=== PATIENT | female | born 1990 | race Caucasian/White ===

== ENCOUNTER 2016-11-12 08:35 | Emergency (ER) | payer OTHER ==
[~2016-11-12] VITALS: Ht 175.3 cm; Wt 86.2 kg
[~2016-11-12 08:35] MED LIST: ALBU2.5V7 INH; LEVO500T20 PO; LOSA50TA3 PO; PRED20TA PO
[2016-11-12 09:03] VITALS: BP 144/102; PULSE 89; RESP 16; TEMP 98.2; O2SAT 99
--- NOTE | 2016-11-12 09:11 | NUR ---
AMBULATED TO BED 2
--- NOTE | 2016-11-12 09:30 | NUR ---
TRAE Mendoza at bedside examining patient.
--- NOTE | 2016-11-12 09:48 | NUR ---
PT PRESENTS TO ED C/O R ARM PAIN SECONDARY TO LUPUS. PT HAS NO ACUTE DISTRESS NOTED. PT REPORTS PAIN WORSENING THIS AM.
[2016-11-12] MEDS ORDERED: LORazepam 2 MG/ML VIAL (FOR ER USE) IM ONE (10:00)
[2016-11-12] MEDS ORDERED: KETOROLAC TROMETHAMINE 60 MG/2 ML VIAL IM ONE (10:00)
--- NOTE | 2016-11-12 10:05 | NUR ---
PT MEDICATED TOLERATED WELL.
[2016-11-12 10:45] VITALS: BP 145/89; PULSE 84; RESP 16; TEMP 98.2; O2SAT 99
--- NOTE | 2016-11-12 10:45 | NUR ---
Patient given written and verbal discharge instructions and verbalizes understanding. ER MD discussed with patient the results and treatment provided. Given copies of tests performed in ER. Patient in stable condition. ID arm band removed. Rx of FLEXERIL given. Patient educated on pain management and to follow up with PMD. Pain Scale 2. Opportunity for questions provided and answered.
== END 2016-11-12 10:45 | disposition home or self-care (01) ==
LOC: SED 08:35
DX: M79.1 Myalgia (principal); R10.10 Upper abdominal pain, unspecified; M32.9 Systemic lupus erythematosus, unspecified; J45.909 Unspecified asthma, uncomplicated
CPT/HCPCS: 81025; 96372; 99284; J1885; J2060

== ENCOUNTER 2018-01-01 13:25 | Emergency (ER) | payer OTHER ==
[~2018-01-01] VITALS: Ht 175.3 cm; Wt 88.0 kg
[2018-01-01 13:30] VITALS: BP_SYST 126
[2018-01-01 14:01] LABS: BASOPHILS % (AUTO) 0.5 % (0.0-2.0); EOSINOPHILS % (AUTO) 0.6 % (0.0-4.0); HEMATOCRIT 38.4 % (36-48); LYMPHOCYTES # (AUTO) 1.2 K/uL (1.0-5.5); LYMPHOCYTES % (AUTO) 20.1 % (20.5-51.5); MEAN CORPUSCULAR HEMOGLOBIN 29 pg (27-31); MEAN CORPUSCULAR HGB CONC 34 % (32-36); MEAN CORPUSCULAR VOLUME 86 fL (79.0-98.0); MONOCYTES # (AUTO) 0.3 K/uL (0.0-1.0); MONOCYTES % (AUTO) 4.6 % (1.7-9.3); NEUTROPHILS # (AUTO) 4.3 K/uL (1.8-7.7); NEUTROPHILS % (AUTO) 74.2 % (40.0-70.0); PLATELET COUNT (AUTO) 197 K/uL (130-430); RED BLOOD CELL COUNT(AUTO) 4.45 MIL/uL (4.2-6.2); RED CELL DISTRIBUTION WIDTH 12.7 % (9.0-15.0); WHITE BLOOD COUNT (AUTO) 5.8 K/uL (4.8-10.8)
[2018-01-01 14:09] LABS: ANION GAP 8 (5-15); CALCIUM 8.8 mg/dL (8.4-11.0); CHLORIDE 108 mmol/L (98-107); CREATININE 0.75 mg/dL (0.55-1.30); GLUCOSE 98 mg/dL (70-99); POTASSIUM 3.6 mmol/L (3.5-5.1); SODIUM SERUM 142 mmol/L (136-145); UREA NITROGEN, BLOOD 11 mg/dL (8-21)
[2018-01-01 14:10] LABS: GFR AFRICAN AMERICAN 120 mL/min (>90)
[2018-01-01 14:14] LABS: ALANINE AMINOTRANSFERASE 30 U/L (12-78); ALBUMIN 3.6 g/dL (3.4-4.8); ASPARTATE AMINOTRANSFERASE 19 U/L (10-37); TOTAL BILIRUBIN 0.3 mg/dL (0.0-1.0)
[2018-01-01 14:22] LABS: BARBITURATE, URINE NEGATIVE (NEG <=200); BENZODIAZEPINE, URINE NEGATIVE (NEG <=150); CANNABINOID, URINE NEGATIVE (NEG <=50); COCAINE, URINE NEGATIVE (NEG <=150); METHAMPHETAMINES SCREEN,URINE NEGATIVE (NEG <=500); OPIATE, URINE POSITIVE (NEG <=100); PHENCYCLIDINE SCREEN,URINE NEGATIVE (NEG <=25); UR TRICYCLIC ANTIDEPRESSANTS NEGATIVE (NEG <=300); URINE AMPHETAMINE NEGATIVE (NEG <=500); URINE METHADONE NEGATIVE (NEG <=200); URINE OXYCODONE SCREEN NEGATIVE (NEG <=100); URINE PROPOXYPHENE SCREEN NEGATIVE (NEG <=300)
[2018-01-01 14:23] LABS: THYROID STIMULATING HORMONE 1.31 uIu/mL (0.34-4.82)
[2018-01-01 15:30] VITALS: BP_SYST 131
== END 2018-01-01 15:30 | disposition home or self-care (01) ==
LOC: SED 13:25
DX: R00.2 Palpitations (principal); J45.909 Unspecified asthma, uncomplicated; Z88.8 Allergy status to other drugs, medicaments and biological substances
CPT/HCPCS: 36415; 71045; 80053; 80307; 81025; 84443-TC; 84484; 85025; 93005; 99285

== ENCOUNTER 2021-06-10 02:59 | Emergency (ER) | payer OTHER ==
[~2021-06-10] VITALS: Ht 175.3 cm; Wt 95.3 kg
[2021-06-10 03:05] VITALS: BP_SYST 140
[2021-06-10] MEDS ORDERED: DIPH-TET-PERTUS Vaccine 0.5 ML VIAL (ADACEL) I.M. ONE (04:15)
[2021-06-10 04:43] VITALS: BP_SYST 135
[2021-06-10] MEDS ORDERED: HYDR-3917 PO (17:24)
== END 2021-06-10 04:40 | disposition home or self-care (01) ==
LOC: SED 02:59
DX: S61.411A Laceration without foreign body of right hand, initial encounter (principal); S90.512A Abrasion, left ankle, initial encounter; J45.909 Unspecified asthma, uncomplicated; Z79.899 Other long term (current) drug therapy; V47.5XXA Car driver injured in collision with fixed or stationary object in traffic accident, initial encounter; Y93.89 Activity, other specified; Y92.89 Other specified places as the place of occurrence of the external cause; Y99.8 Other external cause status
CPT/HCPCS: 90715; 99283

== ENCOUNTER 2021-06-10 15:28 | Emergency (ER) | payer SELFPAY ==
[~2021-06-10] VITALS: Ht 175.3 cm; Wt 88.5 kg
[~2021-06-10 15:28] MED LIST changes: +FLUORESCEIN SODIUM 1 MG OPHTHALMIC STRIP OP ONE; +PROPARACAINE (OPTHANINE 0.5%) 15 ML DROPS OP ONE
[2021-06-10 15:49] VITALS: BP_SYST 145
[2021-06-10 16:15] LABS: BASOPHILS # (AUTO) 0.1 K/uL (0.0-0.2); BASOPHILS % (AUTO) 0.6 % (0.0-2.0); EOSINOPHILS % (AUTO) 0.2 % (0.0-4.0); HEMATOCRIT 35.8 % (36-48); LYMPHOCYTES # (AUTO) 2.7 K/uL (1.0-5.5); MEAN CORPUSCULAR HEMOGLOBIN 30 pg (27-31); MEAN CORPUSCULAR HGB CONC 34 % (32-36); MEAN CORPUSCULAR VOLUME 90 fL (79.0-98.0); MONOCYTES # (AUTO) 0.8 K/uL (0.0-1.0); MONOCYTES % (AUTO) 5.8 % (1.7-9.3); NEUTROPHILS # (AUTO) 10.4 K/uL (1.8-7.7); NEUTROPHILS % (AUTO) 74.4 % (40.0-70.0); PLATELET COUNT (AUTO) 210 K/uL (130-430); RED BLOOD CELL COUNT(AUTO) 3.99 MIL/uL (4.2-6.2); RED CELL DISTRIBUTION WIDTH 13.5 % (9.0-15.0)
[2021-06-10 16:29] LABS: CALCIUM 8.2 mg/dL (8.4-11.0); CREATININE 1.23 mg/dL (0.55-1.30); POTASSIUM 3.3 mmol/L (3.5-5.1)
[2021-06-10 16:37] LABS: ALBUMIN 2.7 g/dL (3.4-4.8); TOTAL BILIRUBIN 0.5 mg/dL (0.0-1.0)
[2021-06-10] MEDS ORDERED: HYDR-3917 PO (17:24)
[2021-06-10 17:37] VITALS: BP_SYST 133
== END 2021-06-10 17:35 | disposition home or self-care (01) ==
LOC: SED 15:28
DX: H53.8 Other visual disturbances (principal); Z88.8 Allergy status to other drugs, medicaments and biological substances; Z79.899 Other long term (current) drug therapy
CPT/HCPCS: 36415; 70450-TC; 76376; 80053; 81025; 84484; 84703; 85025; 99284